=== PATIENT | male | born 1995 | race Caucasian/White ===

== ENCOUNTER 2019-10-11 05:39 | Emergency (ER) | payer OTHER, SELFPAY ==
[2019-10-11 05:47] VITALS: BP 145/83; PULSE 95; RESP 15; TEMP 36.4; O2SAT 98; BMI 21.5
--- NOTE | 2019-10-11 05:57 | ED_ITS ---
HPI - Skin/Abscess/Foreign Bdy General Chief complaint: Skin/Abscess/Foreign Body Stated complaint: Left eye swollen, red Time Seen by Provider: 10/11/19 05:45 Source: patient Mode of arrival: Family Vehicle Limitations: no limitations History of Present Illness HPI narrative: Otherwise healthy 24-year-old gentleman presents this morning with increased swelling to the left eyelid. There is a small skin abrasion just under the left eyebrow that looks like the initial point of infection. Last night when he went to bed he felt that his eye was normal and when he awoke this morning, noted enough swelling over the eyelid and extending to the left lateral epicanthal fold that he has trouble opening his eye completely Related Data Previous Rx's Medication Instructions Recorded cephalexin [Keflex] 500 mg PO Q8H #21 cap 10/11/19 Allergies Allergy/AdvReac Type Severity Reaction Status Date / Time No Known Drug Allergies Allergy Verified 10/11/19 06:03 Review of Systems Review of Systems Narrative: Denies ? fever ? cough ? cold ? chills ? chest pain ? dyspnea ? nausea vomiting ? skin changes ? rashes beyond that noted above his eye Patient History Social History Smoking Status: Never smoker Smoking Status: Never smoker alcohol intake frequency: a few times a month Substance Use Type: does not use Exam Narrative Exam Narrative: General: Alert appropriate in no acute distress Respiratory: Able to speak in full sentences, no obvious respiratory distress HEENT: Left eye lid with 2mm scratch under the left eyebrow wtih surronding erythema and edema. Left eye/scleara are not involved. Full extra occular eyemovement intact and non-painful. Pupils ERRLA Skin: No obvious rashes beyond the eyelid, warm and dry Neurologic: Grossly intact no obvious asymmetries or abnormalities Psych: appropriate insight and affect, cooperative Initial Vital Signs Initial Vital Signs: Vital Signs Temperature 97.6 F 10/11/19 05:47 Pulse Rate 95 H 10/11/19 05:47 Respiratory Rate 15 10/11/19 05:47 Blood Pressure 145/83 H 10/11/19 05:47 Pulse Oximetry 98 10/11/19 05:47 Course Orders Ordered: Discontinued Medications Acetaminophen (Tylenol) 325 mg PO NOW ONE Stop: 10/11/19 06:05 Last Admin: 10/11/19 06:28 Dose: 325 mg Documented by: JOSSELYN Ceftriaxone Sodium (Rocephin) 1,000 mg IM NOW ONE Stop: 10/11/19 05:58 Ceftriaxone Sodium (Rocephin) 1,000 mg IM NOW ONE Stop: 10/11/19 06:08 Last Admin: 10/11/19 06:29 Dose: 1,000 mg Documented by: JOSSELYN Ibuprofen (Advil) 400 mg PO NOW ONE Stop: 10/11/19 06:05 Last Admin: 10/11/19 06:28 Dose: 400 mg Documented by: JOSSELYN Lidocaine HCl (Xylocaine 1%) 2.1 ml INJ NOW ONE Stop: 10/11/19 06:08 Last Admin: 10/11/19 06:29 Dose: 2.1 ml Documented by: JOSSELYN Vital Signs Vital signs: Vital Signs - 8 hr 10/11/19 05:47 Temperature 97.6 F Pulse Rate 95 H Respiratory Rate 15 Blood Pressure 145/83 H Pulse Oximetry 98 MDM - Skin/Abscess/Foreign Bdy Medical Records Attestation: I reviewed the patient's medical records. MDM Narrative Medical decision making narrative: cellulitis to the Left eye lid that does not appear to extend to the globe or retrobulbar. Will trieat with 1gm IM ceftria xone and 7 days of oral keflex. Instructions to return if not improving after 24 hours. Discharge Plan Departure Patient Disposition: Home Clinical Impression: Cellulitis Qualifiers: Site of cellulitis: face Qualified Code(s): L03.211 - Cellulitis of face Instructions: DI for Cellulitis -- Adult Activity Restrictions/Additional Instructions: Thank you for coming in today It does look like you have developed cellulits of your left eyelid due to the small skin wound just under your eyebrow. This looks like it involved only the eye lid and skin at the lateral fold of the eye. It does NOT look like the infection is deeper or back behind your eyeball at this time. Infection that gets into the space behind your eyeball can be much more complicated. I am going to give you a shot of antibiotics (1gm of ceftriaxone) to get treatment started immediately. I would like you to fill the prescription for keflex 500gm 3 times a day and begin this antibiotic today. Frequently, you will have more swelling in redness in the first 24hours of treatment. If you feel that you are still having increased redness, pain, swelling or discharge by Tuesday morning, you need to come back to have us take a look again. 400mg of Ibuprofen and one tylenol together every 6 hours can be very helpful for both pain and swelling. I hope you feel better quickly. Prescriptions: New cephalexin [Keflex] 500 mg capsule 500 mg PO Q8H Qty: 21 RF: 0
[2019-10-11] MEDS: ACETAMINOPHEN 325 MG TABLET PO (06:28)
[2019-10-11] MEDS: IBUPROFEN 400 MG TABLET PO (06:28)
[2019-10-11] MEDS: cefTRIAXone 1,000 MG VIAL 1000 MG IM (06:29)
[2019-10-11] MEDS: LIDOCAINE 1% 20 ML 2.1 ML INJ (06:29)
[2019-10-11 06:52] VITALS: BP 154/75; PULSE 85; RESP 15; O2SAT 98
== END 2019-10-11 06:56 | disposition home or self-care (01) ==
PROVIDERS: Emergency Provider Emergency Medicine
DX: L03.211 Cellulitis of face (principal)
CPT/HCPCS: 96372; 99283; J0696